=== PATIENT | female | born 1995 | race African-American/Black ===

== ENCOUNTER 2022-05-07 10:52 | Emergency (ER) | payer SELFPAY ==
[~2022-05-07] VITALS: Ht 157.5 cm; Wt 52.0 kg
[2022-05-07 10:57] VITALS: BP 135/78
[2022-05-07] MEDS ORDERED: LIDOCAINE HCL/PF 1% 10 MG/ML 5ML VIAL INFIL ONE (11:15)
[2022-05-07] MEDS ORDERED: BACITRACIN ZINC OINT UDPKT TOP ONE (11:15)
[2022-05-07] MEDS ORDERED: TETANUS, DIPHTHERIA, PERTUSSIS VAC/PF 0.5ML (>10YR OLD) IM ONE (11:15)
[2022-05-07] MEDS ORDERED: ACETAMINOPHEN 325MG TABLET PO ONE (11:15)
[2022-05-07] MEDS ORDERED: BO1 TP (11:31)
== END 2022-05-07 11:54 | disposition home or self-care (01) ==
LOC: ER 10:52
DX: S91.311A Laceration without foreign body, right foot, initial encounter (principal); W26.8XXA Contact with other sharp object(s), not elsewhere classified, initial encounter; Y93.02 Activity, running; Y92.520 Airport as the place of occurrence of the external cause
CPT/HCPCS: 12001; 90471; 90715; 99283; J3490